=== PATIENT | male | born 1950 | race Caucasian/White ===

== ENCOUNTER 2019-11-03 08:58 | Inpatient (IN) | payer MEDICARE ==
[2019-11-03] VITALS (15 sets, daily range): BP systolic 143–179; BP diastolic 80–113
[~2019-11-03] VITALS: Ht 182.9 cm; Wt 79.8 kg
[2019-11-03 09:19] LABS: BASOPHILS # (AUTO) 0.1 /CMM (0.0-0.2); EOSINOPHILS % (AUTO) 0.1 % (0.0-6.0); HEMATOCRIT 37 % (39-51); HEMOGLOBIN 11.8 g/dL (13.5-17.5); LYMPHOCYTES # (AUTO) 0.4 /CMM (0.8-4.8); LYMPHOCYTES % (AUTO) 7.8 % (20.0-44.0); MEAN CORPUSCULAR HGB CONC 32 g/dl (31.0-36.0); MEAN CORPUSCULAR VOLUME 101 fL (80-96); MONOCYTES # (AUTO) 0.5 /CMM (0.1-1.30); MONOCYTES % (AUTO) 8.4 % (2.0-12.0); NEUTROPHILS # (AUTO) 4.5 /CMM (1.8-8.9); NEUTROPHILS % (AUTO) 82.7 % (43.0-81.0); PLATELET COUNT (AUTO) 251 /CMM (150-450); RED BLOOD CELL COUNT(AUTO) 3.65 MIL/uL (4.5-6.0); WHITE BLOOD COUNT (AUTO) 5.4 K/uL (4.3-11.0)
--- NOTE | 2019-11-03 09:22 | NUR ---
[id number], from snf, c/o sob, cough on and off x 2 weeks, nitro 0.4mg tab given on scene due to chest tightness,on non-rebreather mask 15lpm 98%. Patient a/ox4, short of breath, oxygen applied to 2lpm via nc. Needs attended. Dr. vogt at bedside for eval. Iv line established, blood drawn and sent.
[2019-11-03 09:33] LABS: CALCIUM, SERUM 9.1 mg/dL (8.5-10.1); CREATININE 1.7 mg/dL (0.6-1.3); POTASSIUM 4.8 mmol/L (3.5-5.1)
[2019-11-03] MEDS ORDERED: NTG 50 MG/D5W250 ML BOTTL 250 ML IV ONE (09:33)
[2019-11-03 09:46] LABS: ALBUMIN 2.7 g/dL (3.4-5.0); BILIRUBIN,DIRECT 0.2 mg/dL (0.0-0.2); BILIRUBIN,TOTAL 0.5 mg/dL (0.2-1.0); TOTAL PROTEIN, SERUM 8.4 g/dL (6.4-8.2)
[2019-11-03] MEDS ORDERED: ACET325C7 PO (09:57)
[2019-11-03] MEDS ORDERED: MULT1TAB73 PO (09:57)
[2019-11-03] MEDS ORDERED: LOSA25TA27 PO (09:57)
[2019-11-03] MEDS ORDERED: NA P133E RC (09:57)
[2019-11-03] MEDS ORDERED: ATOR40TA PO (09:57)
[2019-11-03] MEDS ORDERED: IPRA3AMP22 IH (09:57)
[2019-11-03] MEDS ORDERED: AMIN30LI2 PO (09:57)
[2019-11-03] MEDS ORDERED: NUTR1PAC14 PO (09:57)
[2019-11-03] MEDS ORDERED: FURO20TA4 PO (09:57)
[2019-11-03] MEDS ORDERED: ASCO500T9 PO (09:57)
[2019-11-03] MEDS ORDERED: INSU100C13 (09:57)
[2019-11-03] MEDS ORDERED: ACET-2605 PO ×2 (09:57)
[2019-11-03] MEDS ORDERED: METO100T7 PO (09:57)
[2019-11-03] MEDS ORDERED: CRAN3875 PO (09:57)
[2019-11-03] MEDS ORDERED: HYDR-4384 PO (09:57)
[2019-11-03] MEDS ORDERED: RIVA10TA PO (09:57)
[2019-11-03] MEDS ORDERED: BISA10SU11 RC (09:57)
[2019-11-03] MEDS ORDERED: CLOP75TA15 PO (09:57)
[2019-11-03] MEDS ORDERED: MAGN400O6 PO (09:57)
[2019-11-03] MEDS ORDERED: DOCU-141 PO (09:57)
[2019-11-03] MEDS ORDERED: DIGO125T PO (09:57)
[2019-11-03] MEDS ORDERED: INSU100C13 SQ (09:57)
[2019-11-03] MEDS ORDERED: NICO-676 TD (09:57)
[2019-11-03] MEDS ORDERED: NTG 50 MG/D5W250 ML BOTTL 250 ML IV PRN ×2 (10:00→11:30)
--- NOTE | 2019-11-03 10:02 | NUR ---
new iv access RFA 20# PATENT AND INTACT. NO SIGNS OF INFILTRATION
[2019-11-03] MEDS ORDERED: MISCELLANEOUS MED 1 EA EA INH STA (10:07)
[2019-11-03] MEDS ORDERED: FUROSEMIDE 40 MG/4 ML VIAL ONE (10:14)
[2019-11-03] MEDS ORDERED: FUROSEMIDE 40 MG/4 ML VIAL IV ONE (10:30)
[2019-11-03] MEDS ORDERED: LEVALBUTEROL HCL NEB 1.25 MG/0.5 ML VIAL.NEB IH ONE (10:30)
--- NOTE | 2019-11-03 10:30 | NUR ---
CALLED NURSING SUP FOR ICU BED.
[2019-11-03] MEDS ORDERED: DEXTROSE 50%-WATER 50 ML DISP.SYRIN IV PRN ×2 (11:30→14:45)
[2019-11-03] MEDS ORDERED: MORPHINE SULFATE INJ 2 MG/ML DISP.SYRIN IV PRN ×2 (11:30→14:45)
[2019-11-03] MEDS ORDERED: ACETAMINOPHEN 325 MG TABLET PO PRN ×2 (11:30→14:45)
[2019-11-03] MEDS ORDERED: TEMAZEPAM 15 MG CAPSULE PO PRN ×2 (11:30→14:45)
[2019-11-03] MEDS ORDERED: ONDANSETRON HCL/PF 4 MG/2 ML VIAL IVP PRN ×2 (11:30→14:45)
[2019-11-03] MEDS ORDERED: METOPROLOL SUCCINATE 50 MG TAB.SR.24H PO SCH (11:30)
[2019-11-03] MEDS ORDERED: INSULIN REGULAR, HUMAN 100 UNIT/ML 3 ML VIAL SQ PRN (11:30)
[2019-11-03] MEDS ORDERED: HYDROCODONE/APAP 5/325MG 1 EACH TABLET PO PRN ×2 (11:30→14:45)
[2019-11-03] MEDS ORDERED: BLOOD SUGAR DIAGNOSTIC 1 EACH STRIP IN SCH (12:00)
--- NOTE | 2019-11-03 13:39 | NUR ---
NURSING SUP GAVE ICU BED 263.
--- NOTE | 2019-11-03 13:50 | NUR ---
RN - ER- XFER - ICU REPORT GIVEN TO VANITA
--- NOTE | 2019-11-03 13:53 | NUR ---
Josefa santiago in [facility] - 11/03/19 at 1355 by ERIC RN - ER--- > ICU REPORT GIVEN TO VANITA
[2019-11-03] MEDS ORDERED: BUMETANIDE INJ 8 MG in IV NS 0.9% 48 ML IV ONE ×2 (14:00→14:59)
[2019-11-03] MEDS: NTG 50 MG/D5W250 ML BOTTL 250 ML IV PRN ×2 (14:46→20:59)
[2019-11-03] MEDS ORDERED: DIGOXIN 0.125 MG TABLET PO SCH (14:52)
[2019-11-03] MEDS ORDERED: RIVAROXABAN 10 MG TABLET PO SCH ×2 (17:00)
[2019-11-03] MEDS: IPRATROPIUM NEB FS 0.5 MG/2.5 ML AMPUL.NEB NEB SCH ×3 (17:10→23:23)
[2019-11-03 17:14] LABS: ABG BASE EXCESS -3.8 mmol/L; ABG OXYGEN SATURATION 93.1 % (92.0-98.5); ABG PCO2 48.1 mmHg (35.0-45.0); ABG PH 7.294 (7.350-7.450); AaDO2 126.9 mmHg; COHb 0.7 % (0.5-1.5); MetHb 0.5 % (0.0-1.5); SITE, ABG Left Brachial; VENT MODE, BG Nasal Cannula
[2019-11-03] MEDS: BLOOD SUGAR DIAGNOSTIC 1 EACH STRIP IN SCH ×2 (17:30→21:49)
[2019-11-03] MEDS: CLOPIDOGREL BISULFATE 75 MG TABLET PO SCH (17:42)
[2019-11-03] MEDS: METOPROLOL SUCCINATE 50 MG TAB.SR.24H PO SCH (17:42)
[2019-11-03] MEDS: methylPREDNISolone SOD SUCC 125 MG/2ML VIAL IV SCH (17:44)
[2019-11-03] MEDS: RIVAROXABAN 15 MG TABLET PO SCH (17:46)
--- NOTE | 2019-11-03 19:10 | NUR ---
RN OPENING NOTES: PATIENT IN BED, AWAKE, AND VERBALLY RESPONSIVE. AAOX4. NO SOB. NO CHEST PAIN AT THIS TIME. ON O2 AT 4LPM VIA NC, TOLERATING WELL. HOB ELEVATED. PATIENT HAS IV SITES RIGHT HAND G20 AND LEFT FOREARM G18, C/D/I, FLUSHING WELL. ON NITRO DRIP, WILL TITRATE PER PROTOCOL. SAFETY PRECAUTIONS IMPLEMENTED. BED LOCKED, ALARM ON, LOW POSITION. CALL LIGHT PLACED WITHIN REACH. WILL CONT. TO MONITOR.
[2019-11-03 19:46] LABS: IRON, SERUM 26 ug/dl (50-175); TOTAL IRON BINDING CAPACITY 252 ug/dl (250-450)
--- NOTE | 2019-11-03 20:46 | NUR ---
RN NOTE: PATIENT REFUSED DINNER. OFFERED SANDWICHES. PER PATIENT, HE DOES NOT WANT TO EAT AT THIS TIME. REMINDED PATIENT HE IS DIABETIC AND NEEDS TO EAT BUT STILL DECLINED FOOD. WILL CONT. TO MONITOR. Addendum: 11/03/19 at 2212 by MARI BASS RN CHECKED PATIENT BS 136. PATIENT DECLINED 2 UNITS OF INSULIN BECAUSE HE DID NOT EAT DINNER. OFFERED SNACKS BUT STILL REFUSED. WILL CONT. TO MONITOR.
--- NOTE | 2019-11-03 21:32 | NUR ---
RN NOTE: PATIENT BP 159/107. PER CHARGE NURSE, KEEP NITRO DRIP AT 80 MCG. WILL CONT. TO MONITOR.
[2019-11-03] MEDS: DOCUSATE SODIUM 100 MG CAPSULE PO SCH (21:41)
[2019-11-03] MEDS: ATORVASTATIN 40 MG TABLET PO SCH (21:41)
[2019-11-03] MEDS ORDERED: ATORVASTATIN 40 MG TABLET PO SCH (22:00)
[2019-11-03] MEDS ORDERED: DOCUSATE SODIUM 100 MG CAPSULE PO SCH (22:00)
[2019-11-03] MEDS: INSULIN REGULAR, HUMAN 100 UNIT/ML 3 ML VIAL SQ PRN (22:10)
[2019-11-04] VITALS (31 sets, daily range): BP systolic 116–174; BP diastolic 52–125
[2019-11-04] MEDS: IPRATROPIUM NEB FS 0.5 MG/2.5 ML AMPUL.NEB NEB SCH ×6 (03:58→23:24)
--- NOTE | 2019-11-04 06:57 | NUR ---
RN NOTE: URINE SPECIMEN COLLECTED. CALLED LAB FOR DIRT BIKE RACER.
--- NOTE | 2019-11-04 07:05 | NUR ---
RN CLOSING NOTES: PATIENT IN BED, AWAKE, AND VERBALLY RESPONSIVE. AAOX4. NO SOB. NO CHEST PAIN. ON O2 AT 4LPM VIA NC, TOLERATING WELL. HOB ELEVATED. PATIENT HAS IV SITES RIGHT HAND G20 AND LEFT FOREARM G18, C/D/I, FLUSHING WELL. ON NITRO DRIP AT 80 MCG/MIN. NITRO WILL FINISH AROUND 0730. CALLED PHARMACY X 2 TO DELIVER MED, NO CALL BACK. ENDORSED TO AM SHIFT NURSE FOR CONTINUITY OF CARE. Addendum: 11/04/19 at 0732 by MARI BASS RN ENDORSED TO AM SHIFT NURSE TO CALL PHARMACY AGAIN TO DELIVER NITRO.
--- NOTE | 2019-11-04 07:15 | NUR ---
SENIOR FINANCIAL NOTES PATIENT IN BED A/OX 4 . ON 4L NASAL CANNULA , UNCONTROLLED AFIB. PATIENT HAVE DIFFICULTY BREATHING AND VERY LETHARGIC. NO ISOLATION SKIN INTACT. RIGHT HAND #20 AND LEFT FOREARM PERIPHERAL IV PATENT AND FLUSHED WELL. CALL LIGHT WITHIN REACH, BED AT THE LOWEST POSITION LOCKED. WILL MONITOR PATIENT FOR O2 SAT.
[2019-11-04] MEDS ORDERED: PANTOPRAZOLE 40 MG TABLET.DR PO SCH (07:30)
--- NOTE | 2019-11-04 07:30 | NUR ---
CAM SPECIALIST NOTES NITRO DRIP NOT AVAILABLE IN THE CASSETTE CALLED PHARMACY TO DELIVER.
[2019-11-04 07:43] LABS: BASOPHILS % (AUTO) 0.2 % (0.0-2.0); HEMATOCRIT 38 % (39-51); HEMOGLOBIN 11.8 g/dL (13.5-17.5); LYMPHOCYTES # (AUTO) 0.4 /CMM (0.8-4.8); LYMPHOCYTES % (AUTO) 6.6 % (20.0-44.0); MEAN CORPUSCULAR HGB CONC 31 g/dl (31.0-36.0); MEAN CORPUSCULAR VOLUME 102 fL (80-96); MONOCYTES # (AUTO) 0.3 /CMM (0.1-1.30); MONOCYTES % (AUTO) 5.8 % (2.0-12.0); NEUTROPHILS # (AUTO) 5.1 /CMM (1.8-8.9); NEUTROPHILS % (AUTO) 87.4 % (43.0-81.0); PLATELET COUNT (AUTO) 268 /CMM (150-450); RED BLOOD CELL COUNT(AUTO) 3.72 MIL/uL (4.5-6.0); WHITE BLOOD COUNT (AUTO) 5.9 K/uL (4.3-11.0)
--- NOTE | 2019-11-04 08:02 | NUR ---
CARTRIDGE LOADING OPERATOR NOTES BG 153 MG/DL NO INSULIN AVAILABLE TO ADMINISTER. CALLED PHARMACY AND INFORMED.
[2019-11-04] MEDS: BLOOD SUGAR DIAGNOSTIC 1 EACH STRIP IN SCH ×4 (08:04→22:27)
[2019-11-04 08:09] LABS: ALBUMIN 2.4 g/dL (3.4-5.0); BILIRUBIN,TOTAL 0.3 mg/dL (0.2-1.0); CALCIUM, SERUM 8.9 mg/dL (8.5-10.1); CREATININE 1.6 mg/dL (0.6-1.3); MAGNESIUM 2.2 mg/dL (1.8-2.4); PHOSPHORUS 4.9 mg/dL (2.5-4.9); POTASSIUM 5.2 mmol/L (3.5-5.1); TOTAL PROTEIN, SERUM 7.9 g/dL (6.4-8.2)
[2019-11-04] MEDS ORDERED: NICOTINE PATCH (14MG) 14 MG PATCH.TD24 TD SCH ×2 (09:00)
[2019-11-04] MEDS ORDERED: ASCORBIC ACID 500 MG TABLET PO SCH (09:00)
[2019-11-04] MEDS ORDERED: FUROSEMIDE 40 MG/4 ML VIAL IV SCH (09:00)
[2019-11-04] MEDS ORDERED: CLOPIDOGREL BISULFATE 75 MG TABLET PO SCH (09:00)
[2019-11-04] MEDS ORDERED: PROSOURCE / PROSTAT (PYXIS) 30 ML UDC PO SCH (09:00)
[2019-11-04] MEDS ORDERED: MULTIVITAMINS,THERAGRAN 1 UDTAB TABLET PO SCH (09:00)
[2019-11-04] MEDS ORDERED: DIGOXIN 0.125 MG TABLET PO SCH (09:00)
[2019-11-04 09:05] LABS: CREATININE, URINE 16.9 MG/DL (30.0-125.0); URINE TOTAL PROTEIN 87.7 mg/dL (0-11.9)
--- NOTE | 2019-11-04 09:06 | NUR ---
DECKER OPERATOR NOTES PER DR FLOR HOLD THE TRANSFER AND STAT BLOOD GAS ORDER.
[2019-11-04] MEDS: PANTOPRAZOLE 40 MG TABLET.DR PO SCH (09:31)
[2019-11-04] MEDS: methylPREDNISolone SOD SUCC 125 MG/2ML VIAL IV SCH ×2 (09:31→16:49)
[2019-11-04] MEDS: DILTIAZEM HCL CD 240 MG PO SCH (09:33)
[2019-11-04] MEDS: CLOPIDOGREL BISULFATE 75 MG TABLET PO SCH (09:33)
[2019-11-04] MEDS: MULTIVITAMINS,THERAGRAN 1 UDTAB TABLET PO SCH (09:34)
[2019-11-04] MEDS: METOLAZONE 2.5 MG TABLET PO SCH (09:34)
[2019-11-04] MEDS: METOPROLOL SUCCINATE 50 MG TAB.SR.24H PO SCH (09:36)
[2019-11-04] MEDS: ASCORBIC ACID 500 MG TABLET PO SCH (09:36)
[2019-11-04] MEDS: NICOTINE PATCH (14MG) 14 MG PATCH.TD24 TD SCH (09:37)
[2019-11-04] MEDS: PROSOURCE / PROSTAT (PYXIS) 30 ML UDC PO SCH (09:46)
[2019-11-04] MEDS: FUROSEMIDE 100 MG/10 ML VIAL IV SCH ×3 (09:47→16:48)
--- NOTE | 2019-11-04 09:47 | NUR ---
INTERVENTIONAL NEURORADIOLOGIST NOTES REGULAR INSULIN STILL NOT AVAILABLE CALLED PHARMACY AND REQUESTED TO SEND THE MED.
[2019-11-04 09:50] LABS: APPEARANCE,URINE CLEAR (CLEAR); BILIRUBIN,URINE NEGATIVE (NEGATIVE); BLOOD, URINE SMALL Ery/uL (NEGATIVE); COLOR,URINE YELLOW (YELLOW); KETONES,URINE NEGATIVE (NEGATIVE); LEUKOCYTE ESTERASE ,URINE NEGATIVE (NEGATIVE); NITRITE, URINE NEGATIVE (NEGATIVE); PH,URINE 5.5 (5.0-8.0); PROTEIN,URINE 100 mg/dl (NEGATIVE); UGLUCOSE NEGATIVE (NEGATIVE); UROBILINOGEN,URINE 0.2 EU/dL (0.2)
[2019-11-04 10:45] LABS: BACTERIA,URINE None seen /HPF (None Seen); SQUAMOUS EPITHELIAL CELL,UR Few /HPF (None Seen); WBC,URINE 0-2 /HPF (0-3)
[2019-11-04 10:49] LABS: EOSINOPHIL,URINE None Seen
[2019-11-04 10:53] LABS: ABG OXYGEN SATURATION 96.2 % (92.0-98.5); ABG PH 7.236 (7.350-7.450); ABG PO2 94.9 mmHg (75.0-100.0); AaDO2 101.8 mmHg; COHb 0.4 % (0.5-1.5); MetHb 0.5 % (0.0-1.5); O2Hb 95.3 % (94.0-97.0); SITE, ABG Right Brachial; VENT MODE, BG nasal cannula
[2019-11-04 12:07] LABS: *SPE A/G RATIO 0.6 (0.7-1.7); *SPE ALBUMIN 2.5 g/dL (2.9-4.4); *SPE ALPHA-1-GLOBULIN 0.3 g/dL (0.0-0.4); *SPE ALPHA-2-GLOBULIN 1.1 g/dL (0.4-1.0); *SPE BETA GLOBULIN 0.8 g/dL (0.7-1.3); *SPE GLOBULIN, TOTAL 4.4 g/dL (2.2-3.9); *SPE M-SPIKE 0.3 g/dL (Not Observed); *SPEGAMMA GLOBULIN 2.2 g/dL (0.4-1.8)
[2019-11-04] MEDS: ISOSORBIDE DINITRATE (20MG) 20 MG TABLET PO SCH ×2 (12:08→16:50)
--- NOTE | 2019-11-04 12:13 | NUR ---
PIPE SMOKER MACHINE OPERATOR NOTES PATIENT REFUSED INSULIN. BLOOD GLUCOSE LEVEL 133 MG/DL.
[2019-11-04] MEDS: DIGOXIN 0.125 MG TABLET PO SCH (12:44)
--- NOTE | 2019-11-04 13:45 | NUR ---
EXPLOSIVES OPERATOR NOTES PATIENT IS ANXIOUS WHEN USING BIPAPP. CALLED DR ALBRECHT AND OBTAIN ORDER FOR ATIVAN 0.5G IVP Q8HR PRN.
[2019-11-04] MEDS ORDERED: LORAZEPAM INJ 2 MG/ML VIAL IV PRN (14:00)
[2019-11-04] MEDS: SOD FERRIC GLUC 125 MG in IV NS 0.9% 100 ML IV SCH (14:09)
[2019-11-04 16:07] LABS: ABG BASE EXCESS -2.4 mmol/L; ABG OXYGEN SATURATION 94.3 % (92.0-98.5); ABG PCO2 39.8 mmHg (35.0-45.0); ABG PH 7.372 (7.350-7.450); ABG PO2 70.9 mmHg (75.0-100.0); AaDO2 81.8 mmHg; COHb 0.3 % (0.5-1.5); MetHb 0.5 % (0.0-1.5); O2Hb 93.5 % (94.0-97.0); SITE, ABG Right Brachial
[2019-11-04] MEDS: RIVAROXABAN 15 MG TABLET PO SCH (16:53)
[2019-11-04 17:27] LABS: CREATININE, URINE 17.5 MG/DL (30.0-125.0); URINE TOTAL PROTEIN 88.7 mg/dL (0-11.9)
[2019-11-04 17:29] LABS: APPEARANCE,URINE CLEAR (CLEAR); BILIRUBIN,URINE NEGATIVE (NEGATIVE); BLOOD, URINE TRACE-INTA Ery/uL (NEGATIVE); COLOR,URINE YELLOW (YELLOW); KETONES,URINE NEGATIVE (NEGATIVE); LEUKOCYTE ESTERASE ,URINE NEGATIVE (NEGATIVE); NITRITE, URINE NEGATIVE (NEGATIVE); PH,URINE 5.5 (5.0-8.0); PROTEIN,URINE 100 mg/dl (NEGATIVE); UGLUCOSE NEGATIVE (NEGATIVE); UROBILINOGEN,URINE 0.2 EU/dL (0.2)
[2019-11-04 17:47] LABS: BACTERIA,URINE Rare /HPF (None Seen); HYALINE CASTS, URINE Rare /LPF (None Seen); SQUAMOUS EPITHELIAL CELL,UR 0-2 /HPF (None Seen)
[2019-11-04] MEDS: INSULIN REGULAR, HUMAN 100 UNIT/ML 3 ML VIAL SQ PRN ×2 (17:47→22:35)
[2019-11-04 18:04] LABS: EOSINOPHIL,URINE None Seen
--- NOTE | 2019-11-04 19:34 | NUR ---
ICU NURSE NOTES PATIENT IN BED AWAKE. NO SOB OR DISCOMFORT NOTED. ALL NEEDS ATTENDED. MEDS ADMINISTRATED. CALL LIGHT WITHIN REACH , BED AT THE LOWEST POSITION LOCKED. ENDORSED TO GARMENT ALTERATION EXAMINER NURSE FOR ELISA.
[2019-11-04] MEDS: DOCUSATE SODIUM 100 MG CAPSULE PO SCH (22:11)
[2019-11-04] MEDS: ATORVASTATIN 40 MG TABLET PO SCH (22:11)
--- NOTE | 2019-11-04 23:25 | NUR ---
RT NOTE PT PLACED ON BIPAP WITH SETTINGS OF 15/5, BUR 12, 28%. MASK SECURED WITH MEPILEX. TX GIVEN, NO ADVERSE REACTIONS NOTED. ALARMS ON AND AUDIBLE. NO DISTRESS NOTED AT THIS TIME. WILL MONITOR CLOSELY.
[2019-11-05] VITALS (31 sets, daily range): BP systolic 124–169; BP diastolic 60–126
--- NOTE | 2019-11-05 02:30 | NUR ---
RT NOTE PT REFUSES BIPAP. RN ANA NOTIFIED AND IS AWARE. NO DISTRESS NOTED. PLACED PT ON 36% NASAL CANNULA. WILL MONITOR.
[2019-11-05] MEDS: IPRATROPIUM NEB FS 0.5 MG/2.5 ML AMPUL.NEB NEB SCH ×6 (03:48→23:29)
[2019-11-05 04:33] LABS: BASOPHILS % (AUTO) 0.1 % (0.0-2.0); HEMATOCRIT 35 % (39-51); HEMOGLOBIN 10.9 g/dL (13.5-17.5); LYMPHOCYTES # (AUTO) 0.4 /CMM (0.8-4.8); LYMPHOCYTES % (AUTO) 5.6 % (20.0-44.0); MEAN CORPUSCULAR HGB CONC 31 g/dl (31.0-36.0); MEAN CORPUSCULAR VOLUME 100 fL (80-96); MONOCYTES # (AUTO) 0.3 /CMM (0.1-1.30); MONOCYTES % (AUTO) 4.8 % (2.0-12.0); NEUTROPHILS # (AUTO) 5.8 /CMM (1.8-8.9); NEUTROPHILS % (AUTO) 89.5 % (43.0-81.0); PLATELET COUNT (AUTO) 279 /CMM (150-450); RED BLOOD CELL COUNT(AUTO) 3.46 MIL/uL (4.5-6.0); WHITE BLOOD COUNT (AUTO) 6.4 K/uL (4.3-11.0)
[2019-11-05 05:02] LABS: ALBUMIN 2.4 g/dL (3.4-5.0); BILIRUBIN,TOTAL 0.3 mg/dL (0.2-1.0); CALCIUM, SERUM 8.6 mg/dL (8.5-10.1); CREATININE 1.8 mg/dL (0.6-1.3); MAGNESIUM 2.3 mg/dL (1.8-2.4); PHOSPHORUS 4.7 mg/dL (2.5-4.9); POTASSIUM 4.4 mmol/L (3.5-5.1); TOTAL PROTEIN, SERUM 7.3 g/dL (6.4-8.2)
--- NOTE | 2019-11-05 05:42 | NUR ---
rn notes no significant change of condition. in bed resting comfortably. vitlal signs wnl. no distress noted, breathing even and unlabored. on nocturnal bipap tolerated well. no complaint of pain or discomfort. alert and oriented. verbally able to communicate needs.kept clean and dry/ will endorse to next shif for continuity of care.
--- NOTE | 2019-11-05 07:20 | NUR ---
SWATCHER NOTES RECEIVED PATIENT IN BED A/O4 AWAKE. NO SOB OR DISCOMFORT NOTED AT THIS TIME. BOTH IV SITE PATENT AND FLUSHED WITH NS WELL. CALL LIGHT WITHIN REACH BED AT THE LOWEST POSITION LOCKED. WILL CONTINUE TO MONITOR PATIENT.
--- NOTE | 2019-11-05 07:25 | NUR ---
PROCUREMENT PROFESSIONAL NOTES BUMEX NOT AVAILABLE IN THE CASSETTE CALLED PHARMACY FOR DELIVER.
[2019-11-05] MEDS ORDERED: BUMETANIDE INJ 16 MG in IV NS 0.9% 16 ML IV ONE (07:30)
[2019-11-05] MEDS: BLOOD SUGAR DIAGNOSTIC 1 EACH STRIP IN SCH ×4 (07:45→21:45)
[2019-11-05] MEDS: PANTOPRAZOLE 40 MG TABLET.DR PO SCH (08:04)
[2019-11-05 08:06] LABS: *SPE A/G RATIO 0.5 (0.7-1.7); *SPE ALBUMIN 2.6 g/dL (2.9-4.4); *SPE ALPHA-1-GLOBULIN 0.4 g/dL (0.0-0.4); *SPE ALPHA-2-GLOBULIN 1.1 g/dL (0.4-1.0); *SPE M-SPIKE Not Observed g/dL (Not Observed); *SPEGAMMA GLOBULIN 2.5 g/dL (0.4-1.8)
[2019-11-05] MEDS: INSULIN REGULAR, HUMAN 100 UNIT/ML 3 ML VIAL SQ PRN ×4 (08:07→21:51)
[2019-11-05] MEDS: methylPREDNISolone SOD SUCC 125 MG/2ML VIAL IV SCH ×2 (09:02→16:30)
[2019-11-05] MEDS: ISOSORBIDE DINITRATE (20MG) 20 MG TABLET PO SCH ×2 (09:03→16:31)
[2019-11-05] MEDS: NICOTINE PATCH (14MG) 14 MG PATCH.TD24 TD SCH (09:03)
[2019-11-05] MEDS: METOLAZONE 2.5 MG TABLET PO SCH (09:03)
[2019-11-05] MEDS: DILTIAZEM HCL CD 240 MG PO SCH (09:03)
[2019-11-05] MEDS: CLOPIDOGREL BISULFATE 75 MG TABLET PO SCH (09:03)
[2019-11-05] MEDS: NIFEdipine XL (30MG) 30 MG TAB PO SCH ×2 (09:04→10:05)
[2019-11-05] MEDS: ASCORBIC ACID 500 MG TABLET PO SCH (09:04)
[2019-11-05] MEDS: PROSOURCE / PROSTAT (PYXIS) 30 ML UDC PO SCH (09:09)
[2019-11-05] MEDS: MULTIVITAMINS,THERAGRAN 1 UDTAB TABLET PO SCH (09:09)
[2019-11-05 09:13] LABS: ABG BASE EXCESS -0.2 mmol/L; ABG PCO2 54.2 mmHg (35.0-45.0); ABG PH 7.311 (7.350-7.450); ABG PO2 73.2 mmHg (75.0-100.0); AaDO2 120.6 mmHg; COHb 0.5 % (0.5-1.5); MetHb 0.4 % (0.0-1.5); O2Hb 92.2 % (94.0-97.0); SITE, ABG Left Radial; VENT MODE, BG 4L NASAL CANNULA
[2019-11-05] MEDS: METOPROLOL SUCCINATE 50 MG TAB.SR.24H PO SCH (10:04)
[2019-11-05] MEDS: DIGOXIN 0.125 MG TABLET PO SCH (13:23)
--- NOTE | 2019-11-05 13:23 | NUR ---
HADOOP APPLICATION DEVELOPER NOTES DIGOXIN LEVEL CHECKED WITH PHARMACY OK TO GIVE THE MED.
[2019-11-05] MEDS: SOD FERRIC GLUC 125 MG in IV NS 0.9% 100 ML IV SCH (13:54)
--- NOTE | 2019-11-05 15:19 | NUR ---
SENIOR LINUX UNIX ADMINISTRATOR NOTES PATIENT WAS TRANSFERRED SAFELY TO ROOM 116 BED 2 FROM ICU.
[2019-11-05] MEDS: RIVAROXABAN 15 MG TABLET PO SCH (16:30)
--- NOTE | 2019-11-05 19:35 | NUR ---
WHITE WORK CLEANER CLOSING NOTES PATIENT IN BED A/OX4 NO SOB OR DISCOMFORT NOTED AT THIS TIME. ALL IV LINE PATENT. ALL NEEDS ATTENDED, MEDICATIONS ADMINISTRATED. CALL LIGHT WITHIN REACH BED AT THE LOWEST POSITION LOCKED. ENDORSED TO HOME HEALTH SCHEDULER NURSE FOR ELISA.
[2019-11-05] MEDS: DOCUSATE SODIUM 100 MG CAPSULE PO SCH (21:35)
[2019-11-06] VITALS (7 sets, daily range): BP systolic 108–135; BP diastolic 54–74
[2019-11-06] MEDS: BLOOD SUGAR DIAGNOSTIC 1 EACH STRIP IN SCH ×5 (00:24→21:35)
[2019-11-06] MEDS: IPRATROPIUM NEB FS 0.5 MG/2.5 ML AMPUL.NEB NEB SCH ×6 (03:53→23:08)
[2019-11-06] MEDS ORDERED: BUMETANIDE INJ 8 MG in IV NS 0.9% 48 ML IV ONE (07:00)
[2019-11-06] MEDS: PANTOPRAZOLE 40 MG TABLET.DR PO SCH (07:21)
[2019-11-06 07:29] LABS: BASOPHILS % (AUTO) 0.1 % (0.0-2.0); HEMATOCRIT 33 % (39-51); HEMOGLOBIN 10.8 g/dL (13.5-17.5); LYMPHOCYTES # (AUTO) 0.3 /CMM (0.8-4.8); LYMPHOCYTES % (AUTO) 3.2 % (20.0-44.0); MEAN CORPUSCULAR HGB CONC 33 g/dl (31.0-36.0); MEAN CORPUSCULAR VOLUME 99 fL (80-96); MONOCYTES # (AUTO) 0.8 /CMM (0.1-1.30); MONOCYTES % (AUTO) 7.9 % (2.0-12.0); NEUTROPHILS # (AUTO) 8.5 /CMM (1.8-8.9); NEUTROPHILS % (AUTO) 88.8 % (43.0-81.0); PLATELET COUNT (AUTO) 334 /CMM (150-450); RED BLOOD CELL COUNT(AUTO) 3.36 MIL/uL (4.5-6.0); WHITE BLOOD COUNT (AUTO) 9.6 K/uL (4.3-11.0)
--- NOTE | 2019-11-06 07:36 | NUR ---
RN OPENING NOTES RECEIVED PT ASLEEP IN BED WITH HOB ELEVATED. NO SIGNS OF DISTRESS. APPEARS CALM & RELAXED. PT WAS EASILY AWAKEN. A/O X4. NO C/O PAIN OR DISCOMFORT. TRACH IN PLACE AND MIDLINE. IV ON R HAND & LFA IN PLACE. CALL LIGHT WITHIN REACH. SAFETY MEASURES REINFORCED. BED ON THE LOWEST & LOCKED POSITION. WILL CONT TO MONITOR. Addendum: 11/06/19 at 0843 by FINA ORTEGA RN ERROR MSG. PT DOES NOT HAVE TRACH.
[2019-11-06] MEDS: INSULIN REGULAR, HUMAN 100 UNIT/ML 3 ML VIAL SQ PRN ×4 (08:21→21:37)
[2019-11-06] MEDS: NICOTINE PATCH (14MG) 14 MG PATCH.TD24 TD SCH (08:22)
[2019-11-06] MEDS: METOLAZONE 2.5 MG TABLET PO SCH ×2 (08:23→16:39)
[2019-11-06] MEDS: ASCORBIC ACID 500 MG TABLET PO SCH (08:23)
[2019-11-06] MEDS: ISOSORBIDE DINITRATE (20MG) 20 MG TABLET PO SCH ×2 (08:27→16:42)
[2019-11-06] MEDS: MULTIVITAMINS,THERAGRAN 1 UDTAB TABLET PO SCH (08:28)
[2019-11-06] MEDS: METOPROLOL SUCCINATE 50 MG TAB.SR.24H PO SCH (08:28)
[2019-11-06] MEDS: CLOPIDOGREL BISULFATE 75 MG TABLET PO SCH (08:28)
[2019-11-06] MEDS: DILTIAZEM HCL CD 240 MG PO SCH (08:28)
[2019-11-06] MEDS: methylPREDNISolone SOD SUCC 125 MG/2ML VIAL IV SCH ×2 (08:29→16:43)
[2019-11-06] MEDS: PROSOURCE / PROSTAT (PYXIS) 30 ML UDC PO SCH (08:29)
[2019-11-06 09:34] LABS: ALBUMIN 2.3 g/dL (3.4-5.0); BILIRUBIN,TOTAL 0.3 mg/dL (0.2-1.0); CREATININE 2.3 mg/dL (0.6-1.3); MAGNESIUM 2.1 mg/dL (1.8-2.4); POTASSIUM 3.5 mmol/L (3.5-5.1); TOTAL PROTEIN, SERUM 7.2 g/dL (6.4-8.2)
[2019-11-06 12:36] LABS: ABG PCO2 44.2 mmHg (35.0-45.0); ABG PH 7.391 (7.350-7.450); AaDO2 143.4 mmHg; COHb 0.1 % (0.5-1.5); MetHb 0.2 % (0.0-1.5); O2Hb 90.7 % (94.0-97.0); SITE, ABG Right Radial; VENT MODE, BG 4LPM N/C
[2019-11-06] MEDS: DIGOXIN 0.125 MG TABLET PO SCH (13:00)
--- NOTE | 2019-11-06 13:37 | NUR ---
CIRCULAR TANK COOPER NOTE 1300 DOES OF DIGOXIN HELD DUE TO LOW HR. SPOKE TO DR. ROSEN REG HR. RECEIVED ORDER TO HOLD THIS DOSE. WILL CONT TO MONITOR FOR ANY CHANGES.
[2019-11-06] MEDS: SOD FERRIC GLUC 125 MG in IV NS 0.9% 100 ML IV SCH (14:30)
[2019-11-06] MEDS: RIVAROXABAN 15 MG TABLET PO SCH (16:44)
--- NOTE | 2019-11-06 19:02 | NUR ---
RN CLOSING NOTE PT IS AWAKE IN BED WITH HOB ELEVATED. NO CO PAIN OR DISCOMFORT. NO SIGNS OF DISTRESS. ON NC 4L. ON NOCTURNAL BIPAP. AO X4. TELE READING IS A-FIB CONTROLLED. R & L HAND IV SITE IN PLACE AND PATENT. SAFETY MEASURES IMPLEMENTED. CALL LIGHT WITHIN REACH. BED ON LOWEST & LOCKED POSITION. WILL ENDORSE TO THE NIGHT NURSE.
--- NOTE | 2019-11-06 19:05 | NUR ---
RN OPENING NOTES RECEIVED PT AWAKE IN BED WITH HOB ELEVATED. NO SIGNS OF DISTRESS. APPEARS CALM & RELAXED. A/O X4. NO C/O PAIN OR DISCOMFORT. ON 2 VIA NC @ 4L O2 SAT @ 97% CRACKLES ON ALL LOBES STILL NOTED. IV ON R HAND & LFA IN PLACE PATENT.C/D/I,ON TELE MONITOR AFIB CONTROLLED CALL LIGHT WITHIN REACH. SAFETY MEASURES REINFORCED. BED ON THE LOWEST & LOCKED POSITION. WILL CONT TO MONITOR.
--- NOTE | 2019-11-06 19:30 | NUR ---
RN CLOSING NOTE ENDORSED TO WEATHER OBSERVER NURSE FOR ELISA.
[2019-11-06] MEDS: DOCUSATE SODIUM 100 MG CAPSULE PO SCH (21:27)
--- NOTE | 2019-11-06 23:08 | NUR ---
RT NOTE PT PLACED ON NOC BIPAP WITH ORDERED SETTINGS. MASK SECURED WITH MEPILEX. TX GIVEN, NO ADVERSE REACTIONS NOTED. ALARMS SET AND AUDIBLE. NO DISTRESS NOTED AT THIS TIME. WILL CONT TO MONITOR. Addendum: 11/06/19 at 2335 by MADDIE CHAUDHARY RT Amended: Links added.
[2019-11-07] VITALS (7 sets, daily range): BP systolic 122–152; BP diastolic 61–86
[2019-11-07] MEDS: IPRATROPIUM NEB FS 0.5 MG/2.5 ML AMPUL.NEB NEB SCH ×6 (03:03→23:07)
--- NOTE | 2019-11-07 07:38 | NUR ---
RN OPENING NOTES RECEIVED PT AWAKE IN BED, ASLEEP BUT EASILY AWAKEN WITH LIGHT TOUCH AND VOICE. NO SIGNS OF DISTRESS. APPEARS CALM & RELAXED. A/O X4.DENIES CRISTÓBAL PAIN OR DISCOMFORT. ON 02 VIA NC @ 4L O2 SATURATING WELL. LUNGS AUSCULTATED, NOTED OF CRACKLES BILATERALLY. IV ACCESS ON R HAND #20 & L HAND #22, INTACT, PATENT AND FLUSHED WELL.. ON TELE MONITOR AFIB CONTROLLED @77. SAFETY MEASURES IN PLACE, BED ON THE LOWEST & LOCKED POSITION, CALL LIGHT WITHIN REACH. WILL CONT TO MONITOR.
--- NOTE | 2019-11-07 07:40 | NUR ---
GENERAL SALES MANAGER CLOSING NOTE PT IS AWAKE IN BED WITH HOB ELEVATED. NO CO PAIN OR DISCOMFORT. NO SIGNS OF DISTRESS. ON NC 4L. ON NOCTURNAL BIPAP. AO X4. TELE READING IS A-FIB CONTROLLED. R & L HAND IV SITE IN PLACE AND PATENT. ALL NEEDS ATTENDED SAFETY MEASURES IMPLEMENTED. CALL LIGHT WITHIN REACH. BED ON LOWEST & LOCKED POSITION. WILL ENDORSE TO THE AM NURSE.
[2019-11-07] MEDS: BLOOD SUGAR DIAGNOSTIC 1 EACH STRIP IN SCH ×4 (07:46→22:25)
[2019-11-07] MEDS: PANTOPRAZOLE 40 MG TABLET.DR PO SCH (08:19)
[2019-11-07] MEDS: methylPREDNISolone SOD SUCC 125 MG/2ML VIAL IV SCH ×2 (08:54→16:41)
[2019-11-07] MEDS: METOPROLOL SUCCINATE 50 MG TAB.SR.24H PO SCH (08:55)
[2019-11-07] MEDS: CLOPIDOGREL BISULFATE 75 MG TABLET PO SCH (08:55)
[2019-11-07] MEDS: ISOSORBIDE DINITRATE (20MG) 20 MG TABLET PO SCH ×2 (08:55→16:41)
[2019-11-07] MEDS: MULTIVITAMINS,THERAGRAN 1 UDTAB TABLET PO SCH (08:55)
[2019-11-07] MEDS: DILTIAZEM HCL CD 240 MG PO SCH (08:55)
[2019-11-07] MEDS: NICOTINE PATCH (14MG) 14 MG PATCH.TD24 TD SCH (08:56)
[2019-11-07] MEDS: ASCORBIC ACID 500 MG TABLET PO SCH (08:56)
[2019-11-07] MEDS: METOLAZONE 2.5 MG TABLET PO SCH ×2 (08:56→16:41)
[2019-11-07] MEDS: PROSOURCE / PROSTAT (PYXIS) 30 ML UDC PO SCH (09:03)
[2019-11-07] MEDS: INSULIN REGULAR, HUMAN 100 UNIT/ML 3 ML VIAL SQ PRN ×4 (09:06→22:40)
[2019-11-07 09:43] LABS: BASOPHILS % (AUTO) 0.1 % (0.0-2.0); HEMATOCRIT 34 % (39-51); LYMPHOCYTES # (AUTO) 0.2 /CMM (0.8-4.8); LYMPHOCYTES % (AUTO) 2.5 % (20.0-44.0); MEAN CORPUSCULAR HGB CONC 33 g/dl (31.0-36.0); MEAN CORPUSCULAR VOLUME 97 fL (80-96); MONOCYTES # (AUTO) 0.7 /CMM (0.1-1.30); MONOCYTES % (AUTO) 6.8 % (2.0-12.0); NEUTROPHILS % (AUTO) 90.6 % (43.0-81.0); PLATELET COUNT (AUTO) 264 /CMM (150-450); RED BLOOD CELL COUNT(AUTO) 3.46 MIL/uL (4.5-6.0); WHITE BLOOD COUNT (AUTO) 9.9 K/uL (4.3-11.0)
[2019-11-07 10:03] LABS: ALBUMIN 2.3 g/dL (3.4-5.0); BILIRUBIN,TOTAL 0.4 mg/dL (0.2-1.0); CREATININE 2.5 mg/dL (0.6-1.3); MAGNESIUM 2.3 mg/dL (1.8-2.4); PHOSPHORUS 3.9 mg/dL (2.5-4.9); POTASSIUM 3.3 mmol/L (3.5-5.1); TOTAL PROTEIN, SERUM 7.7 g/dL (6.4-8.2)
[2019-11-07] MEDS: FUROSEMIDE 100 MG/10 ML VIAL IV SCH ×3 (10:25→18:08)
[2019-11-07] MEDS: DIGOXIN 0.125 MG TABLET PO SCH (12:49)
--- NOTE | 2019-11-07 14:59 | NUR ---
HIREN NOTES CALLED PHARMACY FOR THE FERRLECIT, STILL AWAITING FOR DELIVERY Addendum: 11/07/19 at 1506 by JO MORRELL RN SPOKE WITH JAHAIRA FROM PHARMACY, [facility] IS ON THE WAY
[2019-11-07] MEDS: SOD FERRIC GLUC 125 MG in IV NS 0.9% 100 ML IV SCH (15:30)
--- NOTE | 2019-11-07 15:30 | NUR ---
RN NOTES WAS NOT ABLE TO ADMINISTERED FERRLECIT ON TIME, MEDS JUST GOT DELIVERED.
[2019-11-07] MEDS: RIVAROXABAN 15 MG TABLET PO SCH (16:42)
--- NOTE | 2019-11-07 19:20 | NUR ---
RN OPENING NOTE PATIENT IN BED, RESTING COMFORTABLY A/O X 3, ON O2 4 LITERS VIA NC, NO SOB NOTED, IV SITES PATENT AND INTACT DENIES ANY PAIN AND DISCOMFORT, CALL LIGHT WITHIN REACH WILL CONTINUE TO MONITOR PT.
--- NOTE | 2019-11-07 19:38 | NUR ---
RN CLOSING NOTES PATIENT IN BED, RESTING COMFORTABLY. ON O2 VIA NC CANNULA, SATURATING WELL. NO SOB NOTED. DENIES ANY PAIN AND DISCOMFORT AT THE MOMENT. KEPT CLEAN AND DRY, ALL DUE MEDS GIVEN AND TOLERATED WELL. ALL NEEDS MET. ENDORSED TO PM RN FOR ELISA.
[2019-11-07] MEDS: DOCUSATE SODIUM 100 MG CAPSULE PO SCH (22:00)
[2019-11-08] VITALS (9 sets, daily range): BP systolic 117–173; BP diastolic 55–87
[2019-11-08] MEDS: IPRATROPIUM NEB FS 0.5 MG/2.5 ML AMPUL.NEB NEB SCH ×6 (03:53→23:44)
[2019-11-08 07:12] LABS: BASOPHILS % (AUTO) 0.2 % (0.0-2.0); HEMATOCRIT 35 % (39-51); HEMOGLOBIN 11.5 g/dL (13.5-17.5); LYMPHOCYTES # (AUTO) 0.2 /CMM (0.8-4.8); LYMPHOCYTES % (AUTO) 2.2 % (20.0-44.0); MEAN CORPUSCULAR HGB CONC 33 g/dl (31.0-36.0); MEAN CORPUSCULAR VOLUME 97 fL (80-96); MONOCYTES # (AUTO) 0.4 /CMM (0.1-1.30); MONOCYTES % (AUTO) 5.2 % (2.0-12.0); NEUTROPHILS # (AUTO) 7.2 /CMM (1.8-8.9); NEUTROPHILS % (AUTO) 92.4 % (43.0-81.0); PLATELET COUNT (AUTO) 283 /CMM (150-450); WHITE BLOOD COUNT (AUTO) 7.8 K/uL (4.3-11.0)
--- NOTE | 2019-11-08 07:34 | NUR ---
RN OPENING NOTES RECEIVED PT AWAKE IN BED, VERBALLY RESPONSIVE AND ABLE TO MAKE NEEDS KNOWN. NO SIGNS OF DISTRESS. APPEARS CALM & RELAXED. A/O X4.DENIES ANY PAIN OR DISCOMFORT. ON 02 VIA NC @ 4L O2 SATURATING WELL. LUNGS AUSCULTATED, NOTED OF CRACKLES BILATERALLY. IV ACCESS ON R HAND #20 & L HAND #22, INTACT, PATENT AND FLUSHED WELL.. ON TELE MONITOR AFIB CONTROLLED @77. SAFETY MEASURES IN PLACE, BED ON THE LOWEST & LOCKED POSITION, CALL LIGHT WITHIN REACH. WILL CONT TO MONITOR.
--- NOTE | 2019-11-08 07:35 | NUR ---
RN NOTES NOC RN, STATED THAT PT HAS A R HEEL WOUND. PICTURES WAS TAKEN AND WOUND CONSULT ORDERED
--- NOTE | 2019-11-08 07:48 | NUR ---
RN CLOSING NOTE PATIENT IN BED, RESTING COMFORTABLY ON O2 4 LITERS VIA NC, NO SOB NOTED, IV SITES PATENT AND INTACT DENIES ANY PAIN AND DISCOMFORT, CALL LIGHT WITHIN REACH WILL CONTINUE TO MONITOR PT.
[2019-11-08 07:50] LABS: ALBUMIN 2.1 g/dL (3.4-5.0); BILIRUBIN,TOTAL 0.4 mg/dL (0.2-1.0); CALCIUM, SERUM 9.1 mg/dL (8.5-10.1); CREATININE 2.4 mg/dL (0.6-1.3); MAGNESIUM 2.2 mg/dL (1.8-2.4); PHOSPHORUS 3.7 mg/dL (2.5-4.9); POTASSIUM 2.9 mmol/L (3.5-5.1); TOTAL PROTEIN, SERUM 7.7 g/dL (6.4-8.2)
[2019-11-08] MEDS: PANTOPRAZOLE 40 MG TABLET.DR PO SCH (07:57)
[2019-11-08] MEDS: BLOOD SUGAR DIAGNOSTIC 1 EACH STRIP IN SCH ×4 (07:57→22:14)
[2019-11-08] MEDS ORDERED: POTASSIUM CHLORIDE 20 MEQ TAB.PRT.SR PO ONE (08:30)
[2019-11-08] MEDS: methylPREDNISolone SOD SUCC 125 MG/2ML VIAL IV SCH ×2 (08:48→16:53)
[2019-11-08] MEDS: ASCORBIC ACID 500 MG TABLET PO SCH (08:49)
[2019-11-08] MEDS: METOLAZONE 2.5 MG TABLET PO SCH ×2 (08:49→16:51)
[2019-11-08] MEDS: MULTIVITAMINS,THERAGRAN 1 UDTAB TABLET PO SCH (08:49)
[2019-11-08] MEDS: DILTIAZEM HCL CD 240 MG PO SCH (08:49)
[2019-11-08] MEDS: METOPROLOL SUCCINATE 50 MG TAB.SR.24H PO SCH (08:50)
[2019-11-08] MEDS: ISOSORBIDE DINITRATE (20MG) 20 MG TABLET PO SCH ×2 (08:50→16:51)
[2019-11-08] MEDS: CLOPIDOGREL BISULFATE 75 MG TABLET PO SCH (08:50)
[2019-11-08] MEDS: NICOTINE PATCH (14MG) 14 MG PATCH.TD24 TD SCH (08:51)
[2019-11-08] MEDS: PROSOURCE / PROSTAT (PYXIS) 30 ML UDC PO SCH (08:57)
[2019-11-08] MEDS: INSULIN REGULAR, HUMAN 100 UNIT/ML 3 ML VIAL SQ PRN ×4 (10:13→22:10)
--- NOTE | 2019-11-08 10:54 | NUR ---
WOUND CARE CONSULT: PT SEEN FOR RT HEEL WOUND WHICH PT STATED HAS BEEN THERE FOR SEVERAL MONTHS. RECOMMEND DPM CONSULT. DR MALONE NOTIFIED OF CONSULT REQUEST. RECOMMENDATIONS MADE FOR SKIN PROTECTION. DISCUSSED WITH NURSING STAFF. DEFER TO DPM FOR WOUND TREATMENT PLAN. WILL SEE PRN. STEWART IN AGREEMENT WITH PLAN OF CARE. CURRENT MELLISA SCORE IS 16. PT ABLE TO TURN AND REPOSITION IN BED. Addendum: 11/08/19 at 1056 by DANIELLA MILLAN WNDNU Amended: Links added.
--- NOTE | 2019-11-08 10:55 | NUR ---
RN NOTES FRANCA ERNANDEZ MADE AWARE ABOUT THE R HEEL WOUND.
[2019-11-08] MEDS ORDERED: Z GUARD REMEDY 2 OZ OINT TP PRN (11:30)
[2019-11-08] MEDS: Z GUARD REMEDY 2 OZ OINT TP SCH (11:43)
[2019-11-08] MEDS: DIGOXIN 0.125 MG TABLET PO SCH (13:23)
[2019-11-08] MEDS: SOD FERRIC GLUC 125 MG in IV NS 0.9% 100 ML IV SCH (13:43)
[2019-11-08] MEDS: RIVAROXABAN 15 MG TABLET PO SCH (16:52)
--- NOTE | 2019-11-08 19:29 | NUR ---
RN CLOSING NOTES PATIENT IN BED, RESTING COMFORTABLY.IN NO APPARENT DISTRESS NOTED. ON O2 VIA NC CANNULA, SATURATING WELL. NO SOB NOTED. DENIES ANY PAIN AND DISCOMFORT AT THE MOMENT. KEPT CLEAN AND DRY, ALL DUE MEDS GIVEN AND TOLERATED WELL. ALL NEEDS MET. ENDORSED TO PM RN FOR ELISA.
--- NOTE | 2019-11-08 20:06 | NUR ---
INDEX EDITOR NOTES PATIENT AWAKE AND WATCHING TV WITH NO DISTRESS NOTED. CALL LIGHT WITHIN REACH. PERIPHERAL LINE INTACT AND PATENT. ENCOURAGED USE OF CALL LIGHT FOR ASSISTANCE AND VERBALIZED GOOD UNDERSTANDING. BED IN LOW LOCK SETTING WITH BED ALARM ON AND FUNCTIONING PROPERLY. ROOM FREE OF CLUTTER AND BELONGINGS KEPT NEAR BEDSIDE. WILL CONTINUE TO MONITOR
[2019-11-08] MEDS: DOCUSATE SODIUM 100 MG CAPSULE PO SCH (22:14)
[2019-11-09] VITALS (7 sets, daily range): BP systolic 154–179; BP diastolic 75–93
[2019-11-09] MEDS: IPRATROPIUM NEB FS 0.5 MG/2.5 ML AMPUL.NEB NEB SCH ×6 (03:19→23:54)
--- NOTE | 2019-11-09 06:29 | NUR ---
PASTRY ARTIST NOTES PATIENT ASLEEP IN BED WITH NO DISTRESS NOTED. CALL LIGHT WITHIN REACH. BIPAP ON AND FUNCTIONING PROPERLY. ALL DUE MEDS GIVEN ORDERED WITH NO ASE NOTED. PERIPHERAL LINE INTACT AND PATENT. BED IN LOW LOCK SETTING WITH BED ALARM ON AND FUNCTIONING PROPERLY. ROOM FREE OF CLUTTER AND BELONGINGS KEPT NEAR BEDSIDE. WILL CONTINUE TO MONITOR
[2019-11-09 06:44] LABS: BASOPHILS % (AUTO) 0.2 % (0.0-2.0); HEMATOCRIT 35 % (39-51); HEMOGLOBIN 11.5 g/dL (13.5-17.5); LYMPHOCYTES # (AUTO) 0.2 /CMM (0.8-4.8); LYMPHOCYTES % (AUTO) 2.2 % (20.0-44.0); MEAN CORPUSCULAR HGB CONC 33 g/dl (31.0-36.0); MEAN CORPUSCULAR VOLUME 96 fL (80-96); MONOCYTES # (AUTO) 0.4 /CMM (0.1-1.30); MONOCYTES % (AUTO) 4.5 % (2.0-12.0); NEUTROPHILS # (AUTO) 8.9 /CMM (1.8-8.9); NEUTROPHILS % (AUTO) 93.1 % (43.0-81.0); PLATELET COUNT (AUTO) 314 /CMM (150-450); RED BLOOD CELL COUNT(AUTO) 3.62 MIL/uL (4.5-6.0); WHITE BLOOD COUNT (AUTO) 9.6 K/uL (4.3-11.0)
[2019-11-09 07:02] LABS: CREATININE 1.9 mg/dL (0.6-1.3); MAGNESIUM 2.1 mg/dL (1.8-2.4); PHOSPHORUS 3.3 mg/dL (2.5-4.9); POTASSIUM 3.5 mmol/L (3.5-5.1)
--- NOTE | 2019-11-09 07:20 | NUR ---
TAX SERVICES PROFESSIONAL OPENING NOTE RECEIVED REPORT BY BEDSIDE. PT AWAKE IN BED, ALERT TO SELF, UNABLE TO ASSESS IF PT IS ALERT AND ORIENTED X 4 DUE TO PT REFUSING TO ANSWER QUESTIONS. ON ROOM AIR, SATURATING 90%, TAKING OFF HIS NASAL CANNULA. AFIB ON TELE MONITOR. IV SITE ON RIGHT HAND G20 INTACT, PATENT WITH HEP LOCK IN PLACE. BED IN LOW POSITION, LOCKED, CALL LIGHT WITHIN REACH.
[2019-11-09] MEDS: PANTOPRAZOLE 40 MG TABLET.DR PO SCH (07:28)
[2019-11-09] MEDS: BLOOD SUGAR DIAGNOSTIC 1 EACH STRIP IN SCH ×4 (07:28→22:45)
[2019-11-09] MEDS: INSULIN REGULAR, HUMAN 100 UNIT/ML 3 ML VIAL SQ PRN ×4 (08:01→22:59)
[2019-11-09] MEDS: METOLAZONE 2.5 MG TABLET PO SCH ×2 (08:06→16:17)
[2019-11-09] MEDS: METOPROLOL SUCCINATE 50 MG TAB.SR.24H PO SCH (08:06)
[2019-11-09] MEDS: MULTIVITAMINS,THERAGRAN 1 UDTAB TABLET PO SCH (08:07)
[2019-11-09] MEDS: ASCORBIC ACID 500 MG TABLET PO SCH (08:07)
[2019-11-09] MEDS: SILVER SULFADIAZINE 50 GM JAR TP SCH (08:07)
[2019-11-09] MEDS: ISOSORBIDE DINITRATE (20MG) 20 MG TABLET PO SCH ×2 (08:07→16:18)
[2019-11-09] MEDS: CLOPIDOGREL BISULFATE 75 MG TABLET PO SCH (08:07)
[2019-11-09] MEDS: NICOTINE PATCH (14MG) 14 MG PATCH.TD24 TD SCH (08:07)
[2019-11-09] MEDS: DILTIAZEM HCL CD 240 MG PO SCH (08:07)
[2019-11-09] MEDS: methylPREDNISolone SOD SUCC 125 MG/2ML VIAL IV SCH (08:07)
[2019-11-09] MEDS: PROSOURCE / PROSTAT (PYXIS) 30 ML UDC PO SCH (08:08)
[2019-11-09] MEDS: Z GUARD REMEDY 2 OZ OINT TP SCH (08:13)
[2019-11-09] MEDS: hydrALAZINE HCL 50 MG TABLET PO SCH ×2 (12:41→16:19)
[2019-11-09] MEDS: DIGOXIN 0.125 MG TABLET PO SCH (12:42)
--- NOTE | 2019-11-09 17:51 | NUR ---
RT NOTE Hhn tx not given. RT held in ER.
--- NOTE | 2019-11-09 19:20 | NUR ---
RN OPENING NOTE PT IN BED AWAKE ALERT X 4, ON O2 4L VIA NC, AFIB ON TELE MONITOR. IV SITE SALINE FLUSH TO RIGHT HAND 20 GAUGE PATENT AND INTACT, BED IN LOW POSITION, LOCKED, CALL LIGHT WITHIN REACH. WILL CONTINUE TO MONITOR
[2019-11-09] MEDS: DOCUSATE SODIUM 100 MG CAPSULE PO SCH (22:00)
--- NOTE | 2019-11-09 22:10 | NUR ---
RN NOTE PT DECLINED COLACE, ACCU CHECK BLOOD SUGAR 233, INSULIN NOT GIVEN DUE TO PROCEDURE SCHEDULED IN AM, CHARGE NURSE AWARE.
[2019-11-10] VITALS (33 sets, daily range): BP systolic 108–166; BP diastolic 59–93
[2019-11-10] MEDS: IPRATROPIUM NEB FS 0.5 MG/2.5 ML AMPUL.NEB NEB SCH ×5 (04:13→19:44)
[2019-11-10 05:16] LABS: BASOPHILS % (AUTO) 0.2 % (0.0-2.0); EOSINOPHILS % (AUTO) 0.1 % (0.0-6.0); HEMATOCRIT 38 % (39-51); HEMOGLOBIN 12.4 g/dL (13.5-17.5); LYMPHOCYTES # (AUTO) 0.1 /CMM (0.8-4.8); LYMPHOCYTES % (AUTO) 1.2 % (20.0-44.0); MEAN CORPUSCULAR HGB CONC 32 g/dl (31.0-36.0); MEAN CORPUSCULAR VOLUME 98 fL (80-96); MONOCYTES # (AUTO) 0.6 /CMM (0.1-1.30); MONOCYTES % (AUTO) 5.8 % (2.0-12.0); NEUTROPHILS # (AUTO) 9.8 /CMM (1.8-8.9); NEUTROPHILS % (AUTO) 92.7 % (43.0-81.0); PLATELET COUNT (AUTO) 324 /CMM (150-450); RED BLOOD CELL COUNT(AUTO) 3.93 MIL/uL (4.5-6.0); WHITE BLOOD COUNT (AUTO) 10.6 K/uL (4.3-11.0)
[2019-11-10] MEDS ORDERED: IV SET PRIMARY PUMP SET 1 EA INFUS.SET MC ONE (06:02)
[2019-11-10] MEDS ORDERED: IV NS 0.9% 500 ML IV ONE (06:02)
[2019-11-10] MEDS ORDERED: VERAPAMIL HCL IV 5 MG/2 ML VIAL ONE ×2 (06:03→06:34)
[2019-11-10] MEDS ORDERED: LIDOCAINE HCL/PF 1% 30 ML SDV ONE (06:03)
[2019-11-10] MEDS ORDERED: IODIXANOL 150 ML IV ONE (06:03)
[2019-11-10 06:07] LABS: CREATININE 1.7 mg/dL (0.6-1.3); POTASSIUM 3.2 mmol/L (3.5-5.1)
[2019-11-10] MEDS ORDERED: HEPARIN SODIUM, PORCINE 1,000 UNIT/ML VIAL ONE ×2 (06:34→07:33)
--- NOTE | 2019-11-10 07:00 | NUR ---
RN CLOSING NOTE PT PICKED UP FOR PROCEDURE, CHECK OFF LIST GIVEN, V/S TAKEN, IV SLTO RT HAND 20 GUAGE PATENT AND INTACT,WILL ENDORSE TO AM NURSE
[2019-11-10] MEDS ORDERED: MIDAZOLAM HCL 2 MG/2ML VIAL ONE (07:15)
[2019-11-10] MEDS ORDERED: NITROGLYCERIN ICAR 1,000 MCG/10 ML VIAL ICAR ONE (07:15)
[2019-11-10] MEDS ORDERED: FENTANYL PF 100MCG/2ML AMPUL ONE (07:15)
[2019-11-10] MEDS ORDERED: hydrALAZINE HCL IV 20 MG VIAL ONE (07:59)
[2019-11-10] MEDS ORDERED: ASPIRIN 81 MG TAB.CHEW PO SCH (09:00)
--- NOTE | 2019-11-10 09:00 | NUR ---
ICU/RN PT POST GAS CHARGER.RIGHT WRIST TR BAND.V/S STABLE ,AFEBRILE.PT PLACED ON 3L N/ SAT O2-95%.NO PAIN REPORTED AT THIS TIME.PT IS AWAKE,ALERT. IV-HL.
[2019-11-10] MEDS: BLOOD SUGAR DIAGNOSTIC 1 EACH STRIP IN SCH ×3 (09:27→16:31)
[2019-11-10] MEDS: methylPREDNISolone SOD SUCC 125 MG/2ML VIAL IV SCH (09:27)
[2019-11-10] MEDS: NICOTINE PATCH (14MG) 14 MG PATCH.TD24 TD SCH (09:28)
[2019-11-10] MEDS: METOLAZONE 2.5 MG TABLET PO SCH ×2 (09:28→16:15)
[2019-11-10] MEDS: hydrALAZINE HCL 50 MG TABLET PO SCH ×3 (09:28→16:16)
[2019-11-10] MEDS: ASCORBIC ACID 500 MG TABLET PO SCH (09:28)
[2019-11-10] MEDS: METOPROLOL SUCCINATE 50 MG TAB.SR.24H PO SCH (09:29)
[2019-11-10] MEDS: MULTIVITAMINS,THERAGRAN 1 UDTAB TABLET PO SCH (09:29)
[2019-11-10] MEDS: DILTIAZEM HCL CD 240 MG PO SCH (09:29)
[2019-11-10] MEDS: ISOSORBIDE DINITRATE (20MG) 20 MG TABLET PO SCH ×2 (09:30→16:15)
[2019-11-10] MEDS ORDERED: POTASSIUM CHLORIDE 20 MEQ TAB.PRT.SR PO SCH (09:30)
[2019-11-10] MEDS: SILVER SULFADIAZINE 50 GM JAR TP SCH (09:31)
[2019-11-10] MEDS: Z GUARD REMEDY 2 OZ OINT TP SCH (09:31)
[2019-11-10] MEDS: PROSOURCE / PROSTAT (PYXIS) 30 ML UDC PO SCH (09:35)
[2019-11-10] MEDS: PANTOPRAZOLE 40 MG TABLET.DR PO SCH (09:51)
[2019-11-10] MEDS: GUAIFENESIN 300 MG/15 ML UDC PO PRN ×2 (09:51→16:31)
--- NOTE | 2019-11-10 10:00 | NUR ---
ICU/RN DUE MEDS ARE GIVEN ORDERED.
[2019-11-10] MEDS: INSULIN REGULAR, HUMAN 100 UNIT/ML 3 ML VIAL SQ PRN ×2 (10:22→17:50)
[2019-11-10] MEDS: DIGOXIN 0.125 MG TABLET PO SCH (12:05)
[2019-11-10] MEDS ORDERED: ASPI-1169 PO (16:42)
[2019-11-10] MEDS ORDERED: ISOS20TA8 PO (16:42)
[2019-11-10] MEDS ORDERED: GUAI100S11 PO (16:42)
[2019-11-10] MEDS ORDERED: methylPREDNISolone SOD SUCC IV (16:42)
[2019-11-10] MEDS ORDERED: HYDR-4077 PO (16:42)
[2019-11-10] MEDS ORDERED: DILT240C88 PO (16:42)
[2019-11-10] MEDS ORDERED: METO2.5T7 PO (16:42)
--- NOTE | 2019-11-10 18:12 | NUR ---
ICU/RN DUE MEDS ARE GIVEN ORDERED.BS-272. 6 UNITS OF INSULIN GIVEN SQ,V/S STABLE ,AFEBRILE.NO PAIN REPORTED AT THIS TIME.PT WILL BE TRANSFERRED TO [facility] TO ROOM 3001.PHONE REPORT GIVEN TO AGUILA/RN ([phone]) .
--- NOTE | 2019-11-10 20:00 | NUR ---
RN/ICU- PT. REMAINS STABLE. AMBULANCE HERE. REPORT GIVEN TO SAME. PT. DC TO [facility] VIA AMBULANCE PER PROTOCOL.
== END 2019-11-10 20:19 | disposition short-term general hospital (02) | DRG 286 ==
LOC: ER 09:02 → ICU 14:40 → TELE-TD 11-05 14:59 → TELE1 11-06 11:28 → ICU 11-10 08:46
PROVIDERS: ADMIT Nurse Practitioner Acute Care; ATTEND Nurse Practitioner Acute Care
PROC: 4A023N7 Measurement of Cardiac Sampling and Pressure, Left Heart, Percutaneous Approach (ICD-10-PCS; principal; 2019-11-10)
PROC: B211YZZ Fluoroscopy of Multiple Coronary Arteries using Other Contrast (ICD-10-PCS; 2019-11-10)
DX: I13.0 Hypertensive heart and chronic kidney disease with heart failure and stage 1 through stage 4 chronic kidney disease, or unspecified chronic kidney disease (principal); N17.0 Acute kidney failure with tubular necrosis; J96.01 Acute respiratory failure with hypoxia; J96.02 Acute respiratory failure with hypercapnia; I50.43 Acute on chronic combined systolic (congestive) and diastolic (congestive) heart failure; N17.9 Acute kidney failure, unspecified; D68.59 Other primary thrombophilia; E87.2 Acidosis; J44.1 Chronic obstructive pulmonary disease with (acute) exacerbation; J84.9 Interstitial pulmonary disease, unspecified; I48.20 Chronic atrial fibrillation, unspecified; I16.0 Hypertensive urgency; E11.22 Type 2 diabetes mellitus with diabetic chronic kidney disease; E78.5 Hyperlipidemia, unspecified; E87.6 Hypokalemia; I25.2 Old myocardial infarction; I25.10 Atherosclerotic heart disease of native coronary artery without angina pectoris; Z79.4 Long term (current) use of insulin; Z79.51 Long term (current) use of inhaled steroids; Z79.899 Other long term (current) drug therapy; Z95.1 Presence of aortocoronary bypass graft; Z79.01 Long term (current) use of anticoagulants; N18.9 Chronic kidney disease, unspecified; M20.41 Other hammer toe(s) (acquired), right foot; M20.42 Other hammer toe(s) (acquired), left foot; D53.9 Nutritional anemia, unspecified; I25.5 Ischemic cardiomyopathy; F17.210 Nicotine dependence, cigarettes, uncomplicated
CPT/HCPCS: 36415; 36600; 71045-TC; 76770-TC; 80048-TC; 80053-TC; 80076-TC; 80162-TC; 81000-TC; 82570-TC; 82728-TC; 82803-TC; 82962-TC; 83540-TC; 83605-TC; 83735-TC; 83880; 84100-TC; 84155; 84155-TC; 84165; 84300-TC; 84484-TC; 85025-TC; 85730-TC; 87040-TC; 87081-TC; 93307-TC; 93971-TC; 94003-TC; 94660; 94760-TC; 94762-TC; 94799-TC; 97110-TC; 97116-TC; 97530-TC; A4216; A4349; C1887; G0378; G0500; J0360; J1644; J1815; J1940; J2250; J2916; J2930; J3010; J3490; J7030; J7040; J7050; Q9967

== ENCOUNTER 2021-03-22 21:52 | Emergency (ER) | payer MEDICARE, MEDICAID ==
[~2021-03-22] VITALS: Ht 182.9 cm; Wt 103.9 kg
[~2021-03-22 21:52] MED LIST: ACET-2605 PO; ACET325C7 PO; AMIN30LI2 PO; ASCO-352 PO; ASPI-1169 PO; BISA10SU11 RC; CRAN3875 PO; DIGO125T PO; DILT240C88 PO; DOCU-141 PO; FURO20TA4 PO; GUAI100S11 PO; HYDR-4077 PO; HYDR-4384 PO; INSU100C13; INSU100C13 SQ; IPRA3AMP22 IH; ISOS20TA8 PO; LOSA25TA27 PO; MAGN400O6 PO; METO100T7 PO; METO2.5T7 PO; MULT-754 PO; NA P133E RC; NICO-676 TD; NUTR1PAC14 PO; RIVA10TA PO; methylPREDNISolone SOD SUCC IV
--- NOTE | 2021-03-22 21:56 | NUR ---
pt bibra c/o sob with saturation in 80s and tachycardia 121 HR. Per ra pt aaox2 at baseline, but upon assessment, pt was altered. Pt brought in on 12L simple mask, but still saturating in 80s. Pt febrile at 101.2 oral. Left forearm 20g initated, blood and blood cultures sent to lab. Skin hot and dry. at bedside. Pt given call light within reach
[2021-03-22] MEDS ORDERED: ROCURONIUM BROMIDE 50 MG/5 ML IV ONE (22:01)
[2021-03-22] MEDS ORDERED: CALCIUM CHLORIDE 1,000 MG/10 ML DISP.SYRIN IV ONE (22:01)
[2021-03-22] MEDS ORDERED: SODIUM BICARBONATE SYR 50 MEQ/50 ML DISP.SYRIN IV ONE (22:01)
[2021-03-22] MEDS ORDERED: EPINEPHRINE (1:10,000) SYRINGE 1 MG/10 ML DISP.SYRIN IVP ONE (22:01)
[2021-03-22 22:20] LABS: BASOPHILS % (AUTO) 0.1 % (0.0-2.0); EOSINOPHILS % (AUTO) 7.2 % (0.0-6.0); HEMATOCRIT 37 % (39-51); HEMOGLOBIN 10.9 g/dL (13.5-17.5); LYMPHOCYTES # (AUTO) 0.2 K/uL (0.8-4.8); LYMPHOCYTES % (AUTO) 1.7 % (20.0-44.0); MEAN CORPUSCULAR HGB CONC 30 g/dl (31.0-36.0); MEAN CORPUSCULAR VOLUME 101 fL (80-96); MONOCYTES # (AUTO) 0.2 K/uL (0.1-1.30); MONOCYTES % (AUTO) 1.2 % (2.0-12.0); NEUTROPHILS # (AUTO) 12.9 K/uL (1.8-8.9); NEUTROPHILS % (AUTO) 89.8 % (43.0-81.0); PLATELET COUNT (AUTO) 157 K/uL (150-450); RED BLOOD CELL COUNT(AUTO) 3.65 MIL/uL (4.5-6.0); WHITE BLOOD COUNT (AUTO) 14.3 K/uL (4.3-11.0)
--- NOTE | 2021-03-22 22:20 | NUR ---
pt noted to be pale and saturating in 70s, at bedside.
--- NOTE | 2021-03-22 22:22 | NUR ---
Rt and Dr rizvi at bedside for intubation.
--- NOTE | 2021-03-22 22:22 | NUR ---
Size 7.5 et tube at 23 at the lip. Placement verified with xray
--- NOTE | 2021-03-22 22:23 | NUR ---
Pt noed to be in PEA, ACLS initiated, see code blue documentation
[2021-03-22] MEDS ORDERED: ACETAMINOPHEN ES 500 MG TABLET PO ONE (22:30)
[2021-03-22] MEDS ORDERED: PIPERACILLIN /TAZOBACTAM 3.375 G in IV D5W 50 ML IV ONE (22:30)
[2021-03-22] MEDS ORDERED: VANCOMYCIN 1 GM in IV D5W 250 ML IV ONE (22:30)
[2021-03-22 22:31] LABS: CALCIUM, SERUM 8.5 mg/dL (8.5-10.1); CARBON DIOXIDE 18 mmol/L (21-32); CHLORIDE 109 mmol/L (98-107); CREATININE 3.4 mg/dL (0.6-1.3); GLUCOSE 136 mg/dL (74-106); POTASSIUM 4.3 mmol/L (3.5-5.1); SODIUM SERUM 143 mmol/L (136-145); UREA NITROGEN, BLOOD 78 mg/dL (7-18)
--- NOTE | 2021-03-22 22:35 | NUR ---
NG tube verified with xray
--- NOTE | 2021-03-22 22:35 | NUR ---
NG tube placed at 65 at the nares.
--- NOTE | 2021-03-22 22:42 | NUR ---
Josefa santiago in ED - 03/22/21 at 2243 by ANGEL TRANSFER INFORMATION PT ACCEPTED AT [facility] ACCEPTING MD SHERWOOD PHONE NUMBER FOR REPORT [facility] AMBULANCE TRANSPORT ETA 30 MIN.
[2021-03-22 22:44] LABS: ALANINE AMINOTRANSFERASE 300 U/L (12-78); ALKALINE PHOSPHATASE 293 U/L (46-116); ASPARTATE AMINOTRANSFERASE 354 U/L (15-37); BILIRUBIN,DIRECT 0.6 mg/dL (0.0-0.2); BILIRUBIN,TOTAL 0.8 mg/dL (0.2-1.0); TOTAL PROTEIN, SERUM 7.5 g/dL (6.4-8.2)
[2021-03-22 22:49] LABS: ALBUMIN 1.4 g/dL (3.4-5.0)
[2021-03-22 22:54] LABS: BILIRUBIN,URINE SMALL (NEGATIVE); COLOR,URINE YELLOW (YELLOW); LEUKOCYTE ESTERASE ,URINE Large (NEGATIVE); NITRITE, URINE Negative (NEGATIVE); PH,URINE 7.5 (5.0-8.0); PROTEIN,URINE >=300 mg/dl (NEGATIVE); UGLUCOSE Negative (NEGATIVE); UROBILINOGEN,URINE 0.2 EU/dL (0.2)
[2021-03-22] MEDS ORDERED: VANCOMYCIN 1 GM VIAL ONE (22:54)
[2021-03-22] MEDS ORDERED: PIPERACILLIN /TAZOBACTAM 3.375 G VIAL IV ONE (22:54)
[2021-03-22] MEDS ORDERED: ACETAMINOPHEN 650 MG/SUPP.RECT RC ONE ×2 (22:57→23:00)
[2021-03-22] MEDS ORDERED: IV NS 0.9% 1,000 ML BAG IV ONE (23:00)
[2021-03-22] MEDS ORDERED: ASPIRIN 300 MG/SUPP.RECT RC ONE ×2 (23:00→23:26)
--- NOTE | 2021-03-22 23:00 | NUR ---
RT pt coded. intubated. ett size 7.5, 25@lip. vent settings: ac 16 550 100% +5. thick bloody secretions suctioned via ett. diminished lung sounds on the left. clear lung sounds on the right. vent plugged in to red outlet. alarms on and audible. abg to follow. will continue to monitor
[2021-03-22 23:02] LABS: BACTERIA,URINE 3+ /HPF (None Seen); RBC,URINE NONE SEEN /HPF (0-2); SQUAMOUS EPITHELIAL CELL,UR Few /HPF (None Seen); WBC,URINE TOO NUMEROUS TO COUN /HPF (0-3)
--- NOTE | 2021-03-22 23:20 | NUR ---
at bedside for central line insertion to right groin
[2021-03-22] MEDS ORDERED: NOREPINEPHRINE 4 MG/4 ML AMPUL IV ONE (23:24)
[2021-03-22 23:30] LABS: ABG BASE EXCESS -20.9 mmol/L; ABG OXYGEN SATURATION 96.6 % (92.0-98.5); ABG PCO2 53.8 mmHg (35.0-45.0); ABG PH 6.925 (7.350-7.450); ABG PO2 140.5 mmHg (75.0-100.0); AaDO2 518.7 mmHg; COHb 0.1 % (0.5-1.5); MetHb 0.4 % (0.0-1.5); O2Hb 96.1 % (94.0-97.0); SITE, ABG Left Radial; VENT MODE, BG AC 16 550 100% +5
[2021-03-22] MEDS: NOREPINEPHRINE 8 MG in IV NS 0.9% 242 ML IV PRN ×6 (23:30→23:55)
[2021-03-22] MEDS ORDERED: SODIUM BICARBONATE SYR 50 MEQ/50 ML DISP.SYRIN ONE (23:44)
[2021-03-23] MEDS ORDERED: ONDANSETRON HCL/PF 4 MG/2 ML VIAL IVP PRN
[2021-03-23] MEDS ORDERED: ROCURONIUM BROMIDE 100 MG/10 ML VIAL IV ONE
[2021-03-23] MEDS ORDERED: PIPERACILLIN /TAZOBACTAM 3.375 G in IV D5W 50 ML IV SCH
[2021-03-23] MEDS ORDERED: NOREPINEPHRINE 8 MG in IV NS 0.9% 250 ML IV PRN
[2021-03-23] MEDS ORDERED: SODIUM BICARBONATE SYR 100 MEQ in IV NS 0.9% 1,000 ML IV PRN ×2
[2021-03-23 00:24] VITALS: BP 104/68
[2021-03-23] MEDS ORDERED: PROPOFOL 100 ML IV PRN (00:30)
--- NOTE | 2021-03-23 00:33 | NUR ---
report given to malgorzata Henderson for lilly
--- NOTE | 2021-03-23 00:40 | NUR ---
returned from radiology
[2021-03-23] MEDS ORDERED: NOREPINEPHRINE 4 MG/4 ML AMPUL IV ONE (00:46)
[2021-03-23] MEDS ORDERED: SODIUM BICARBONATE SYR 50 MEQ/50 ML DISP.SYRIN ONE (00:49)
--- NOTE | 2021-03-23 00:55 | NUR ---
PEA noted, ACLS initiated, see code blue documentation
[2021-03-23] MEDS ORDERED: DOPamine 400MG/D5W 250ML RTU 250 ML ONE (00:56)
[2021-03-23] MEDS ORDERED: Sodium Bicarbonate 100 MEQ in IV D5W 1,000 ML IV PRN (01:00)
[2021-03-23] MEDS ORDERED: BISACODYL SUPP (10 MG) 10 MG/SUPP.RECT SUPP.RECT RC PRN (01:00)
[2021-03-23] MEDS ORDERED: GUAIFENESIN 300 MG/15 ML UDC PO PRN (01:00)
[2021-03-23 01:12] LABS: C-REACTIVE PROTEIN 36.3 mg/dL (0.0-0.9)
--- NOTE | 2021-03-23 01:13 | NUR ---
speaking with family
--- NOTE | 2021-03-23 01:15 | NUR ---
Asystole noted, ACLS initiated, see code blue form.
--- NOTE | 2021-03-23 01:18 | NUR ---
Dr. Garcias pronounced time of
--- NOTE | 2021-03-23 01:29 | NUR ---
[facility] Per Smith, this is not a mandrel puller's case.
--- NOTE | 2021-03-23 01:31 | NUR ---
DR FRANZ PAGED TO REPORT . ONCALL DR ZAVALA NOTIFIED OF .
--- NOTE | 2021-03-23 01:41 | NUR ---
called [facility], spoke to Main, case is closed. reference # [id number]
--- NOTE | 2021-03-23 02:45 | NUR ---
[place] [facility] [place] [facility]
[2021-03-23] MEDS ORDERED: ZOSYN IVPB 3.375 G in IV D5W 50ml IV ONE (05:00)
[2021-03-23] MEDS ORDERED: Medication Not On Formulary EA (Cran/Vitc/Mannose/Inulin/Brom (Uti-Stat Liquid) 3,875 MG PO SCH (09:00)
[2021-03-23] MEDS ORDERED: DEXAMETHASONE SOD PHOSPHATE 10 MG/ML VIAL IV SCH (09:00)
[2021-03-23] MEDS ORDERED: MULTIVITAMINS,THERAGRAN 1 UDTAB TABLET PO SCH (09:00)
[2021-03-23] MEDS ORDERED: DILTIAZEM HCL CD 240 MG PO SCH (09:00)
[2021-03-23] MEDS ORDERED: ASCORBIC ACID 500 MG TABLET PO SCH (09:00)
[2021-03-23] MEDS ORDERED: NICOTINE PATCH (14MG) 14 MG PATCH.TD24 TD SCH (09:00)
[2021-03-23] MEDS ORDERED: ARGININE/GLUTAMINE/CALCIUM BMB 1 EACH POWD.PACK PO SCH (09:00)
[2021-03-23] MEDS ORDERED: PANTOPRAZOLE 40 MG VIAL IV SCH (09:00)
[2021-03-23] MEDS ORDERED: MISCELLANEOUS MED 1 EA EA PO SCH (09:00)
[2021-03-23] MEDS ORDERED: PROSOURCE / PROSTAT (PYXIS) 30 ML UDC PO SCH (09:00)
[2021-03-23] MEDS ORDERED: DIGOXIN 0.125 MG TABLET PO SCH (13:00)
[2021-03-23] MEDS ORDERED: RIVAROXABAN 10 MG TABLET PO SCH (17:00)
[2021-03-23] MEDS ORDERED: DOCUSATE SODIUM 100 MG CAPSULE PO SCH (22:00)
[2021-03-23] MEDS ORDERED: MAGNESIUM HYDROXIDE 30 ML UDC PO SCH (22:00)
== END 2021-03-23 02:45 ==
LOC: ER 22:00 → UNDOADMIN 03-23 00:08 → ICU 03-23 00:08 → ER 03-23 02:45
DX: A41.9 Sepsis, unspecified organism (principal); G92 Toxic encephalopathy; R65.21 Severe sepsis with septic shock; J96.01 Acute respiratory failure with hypoxia; Z87.891 Personal history of nicotine dependence; I11.0 Hypertensive heart disease with heart failure; I50.43 Acute on chronic combined systolic (congestive) and diastolic (congestive) heart failure; I25.2 Old myocardial infarction; I21.A1 Myocardial infarction type 2; J44.1 Chronic obstructive pulmonary disease with (acute) exacerbation; J44.0 Chronic obstructive pulmonary disease with (acute) lower respiratory infection; E78.5 Hyperlipidemia, unspecified; E43 Unspecified severe protein-calorie malnutrition; D68.59 Other primary thrombophilia; I48.20 Chronic atrial fibrillation, unspecified; Z79.01 Long term (current) use of anticoagulants; N39.0 Urinary tract infection, site not specified; J18.9 Pneumonia, unspecified organism; B35.6 Tinea cruris; I25.10 Atherosclerotic heart disease of native coronary artery without angina pectoris; E87.2 Acidosis; N17.9 Acute kidney failure, unspecified; D50.9 Iron deficiency anemia, unspecified; R79.89 Other specified abnormal findings of blood chemistry; Z20.822 Contact with and (suspected) exposure to COVID-19
CPT/HCPCS: 31500; 31720; 36415 ×2; 36556; 36600; 51702; 70450; 71045 ×2; 80048; 80076; 81001; 82550; 82728; 82962; 83605 ×2; 83615; 83880; 84145; 84484; 85025; 85378; 85730; 86140; 87040 ×2; 87077 ×2; 87081; 87086; 87186 ×2; 87426; 92950 ×3; 93005 ×2; 96365 ×3; 99291; 99292; C1751; J0171; J1265; J2543 ×3; J3370; J3490 ×4; J7030 ×2; J7040; J7050; J7060 ×2; J7070; 94002-TC; 99082-TC; C9803; U0003